=== PATIENT | male | born 1940 | race Caucasian/White ===

== ENCOUNTER 2017-12-07 10:30 | Emergency (ER) | payer OTHER, MEDICARE ==
[~2017-12-07] VITALS: Ht 157.5 cm; Wt 83.9 kg
--- NOTE | 2017-12-07 11:50 | ED GENERAL ADULT ---
History of Present Illness General Chief Complaint: Fall Stated Complaint: FALL LFT RIB PAIN Source: patient Exam Limitations: no limitations Vital Signs & Intake/Output Vital Signs & Intake/Output Vital Signs Date Time Temp Pulse Resp B/P B/P Pulse O2 O2 Flow FiO2 Mean Ox Delivery Rate 12/07 1424 98.0 68 18 162/78 99 Room Air 12/07 1037 98.0 65 16 149/66 97 Room Air Allergies Coded Allergies: Iodinated Contrast- Oral and IV Dye (Intermediate, HIVES 12/07/17) Reconcile Medications Ascorbic Acid (C-1000) 1,000 MG TABLET 1 TAB PO DAILY VITAMIN SUPPORT ( Reported) Aspirin (Ecotrin*) 81 MG TABLET.DR 1 TAB PO DAILY HEART HEALTH (Reported) Atorvastatin Calcium 20 MG TABLET 1 TAB PO DAILY CHOLESTEROL (Reported) Carvedilol 12.5 MG TABLET 1 TAB PO BID HEART (Reported) Cilostazol 50 MG TABLET 1 TAB PO BID UNKNOWN (Reported) Ranolazine (Ranexa) 500 MG TAB.ER.12H 1 TAB PO BID HEART (Reported) Valsartan 320 MG TABLET 1 TAB PO DAILY HEART (Reported) Triage Note: 77M MISSED A STEP AND FELL DOWN 2 STAIRS YESTERDAY AT 5:50PM. +HEADSTRIKE, -LOC. DENIES N/V/CHANGES IN VISION OR HEADACHE. DENIES C-SPINE TENDERNESS. REPORTS PAIN TO LEFT RIBCAGE WORSE WITH MOVEMENT AND LAYING DOWN. DENIES SOB, PAIN WORSE WITH VERY DEEP BREATH. -THINNERS. MEDICATED WITH TYLENOL IN TRIAGE Triage Nurses Notes Reviewed? yes Onset: Abrupt Duration: day(s): Timing: recent history HPI: 12/07/17 77-year-old man status post mechanical slip and fall yesterday. He did hit his frontal region of his head and he has left upper rib pain. He denies shortness of breath, abdominal pain or other complaints. He denies any chest pain. He says he has isolated pain to the left upper ribs. He denies headache or neck pain. He says he missed the last 2 steps and fell. He has no abdominal pain. No left shoulder pain. He complains of left upper, left rib pain, worse with movement and twisting. Past History Travel History Traveled to [place] past 21 day No Medical History Any Pertinent Medical History? see below for history Neurological: NONE EENT: NONE Cardiovascular: hypertension, CABG Respiratory: NONE Gastrointestinal: NONE Hepatic: NONE Renal: NONE Musculoskeletal: NONE Psychiatric: NONE Endocrine: NONE Blood Disorders: NONE Cancer(s): NONE Surgical History Surgical History: CABG Psychosocial History What is your primary language Irish Tobacco Use: Never used Family History Hx Contributory? No Review of Systems Review of Systems Constitutional: Denies: fever. EENTM: Denies: visual changes. Respiratory: Denies: short of breath. Cardiovascular: Reports: see HPI. Denies: chest pain. GI: Denies: abdominal pain, nausea. Genitourinary: Reports: no symptoms. Musculoskeletal: Reports: see HPI. Skin: Denies: rash. Neurological/Psychological: Reports: no symptoms. Hematologic/Endocrine: Reports: no symptoms. Immunologic/Allergic: Reports: no symptoms. Physical Exam Physical Exam General Appearance: well developed/nourished, alert, awake, anxious, mild distress Head: atraumatic, normal appearance Eyes: Bilateral: normal appearance, PERRL, EOMI. Ears, Nose, Throat: normal pharynx, normal ENT inspection Neck: normal inspection, supple, full range of motion Respiratory: normal breath sounds, no respiratory distress, left upper lateral rib tenderness Cardiovascular: regular rate/rhythm Peripheral Pulses: 4+ radial (R), 4+ radial (L) Gastrointestinal: soft, non-tender Back: normal range of motion Extremities: normal range of motion Neurologic/Psych: awake, alert, oriented x 3 Skin: intact, normal color, warm/dry Core Measures ACS in differential dx? No CVA/TIA Diagnosis: No Sepsis Present: No Sepsis Focused Exam Completed? No Progress Differential Diagnoses I considered the following diagnoses in my evaluation of the patient: [Rib fracture, pneumothorax, splenic injury, intracranial bleed, cervical spine fracture other occult trauma all considered] Plan of Care: Orders Procedure Date/time Status CT HEAD WO IV CONTRAST 12/07 1212 Active XRY-RIBS UNILATERAL-LEFT 12/07 1036 Active Initial ED EKG: none Departure Departure Disposition: HOME OR SELF CARE Condition: Stable Clinical Impression Primary Impression: Rib injury Secondary Impressions: Head injury Referrals: Real YEAGER,Delvis Del Valle (PCP/Family) Departure Forms: Customer Survey General Discharge Information Comments CT scan of the head is negative for acute injury X-rays are negative for evidence of rib fracture, pneumothorax, hemothorax I considered splenic injury. He has no tenderness to deep palpation of the left upper quadrant. No left shoulder pain. No tachycardia. No complaints of abdominal pain. Vital signs are stable and the injury is 24 hours ago. We discussed that he likely has an occult rib fracture. Tylenol and ibuprofen will be taken for pain. He will return immediately if abdominal pain, shortness of breath or if the pain is worse. He will follow-up with his doctor this week. Critical Care Note Critical Care Note Critical Care Time: non-applicable
[2017-12-07] MEDS ORDERED: CARVEDILOL12.5 M1 PO (12:37)
[2017-12-07] MEDS ORDERED: VALSARTAN320 M1 PO (12:38)
[2017-12-07] MEDS ORDERED: ASPIRIN EC81 M1 PO (12:38)
[2017-12-07] MEDS ORDERED: RANEXA500 M1 PO (12:39)
[2017-12-07] MEDS ORDERED: CILOSTAZOL50 M1 PO (12:39)
[2017-12-07] MEDS ORDERED: ATORVASTATIN CA20 M1 PO (12:39)
[2017-12-07] MEDS ORDERED: C-10001000 MG PO (12:39)
--- NOTE | 2017-12-07 13:50 | CT SCAN REPORT ---
EXAMINATION: CT HEAD WITHOUT CONTRAST CLINICAL INFORMATION: Fall, head trauma. COMPARISON: None. TECHNIQUE: Contiguous axial imaging was performed from the skull base to vertex without intravenous administration of contrast. DLP: 62.71 mGy-cm FINDINGS: There is no evidence of acute intracranial hemorrhage or territorial infarction. No abnormal mass effect or midline shift is seen. Pelaez to white matter differentiation is well preserved. No extra-axial fluid collections are identified. There is mild commensurate prominence of the ventricles and sulci consistent with diffuse volume loss. There are areas of low-attenuation in the periventricular and subcortical white matter consistent with chronic microvascular ischemic changes. There is a linear area of encephalomalacia in the anterior right basal ganglia consistent with a chronic infarct. There is mild associated ex vacuo dilatation of the anterior horn of the right lateral ventricle. There is an equivocal small focus of low attenuation versus partial voluming in the right occipital lobe posteriorly, which may be consistent with a small chronic infarct. There are no acute osseous findings. There are degenerative changes of the right temporomandibular joint. There are no large scalp contusions or hematomas. There are extensive atheromatous calcifications of the bilateral cavernous internal carotid arteries. The mastoid air cells and visualized portions of the paranasal sinuses are well-aerated. The nasal septum is deviated to the right and there is a right-sided bony nasal septal spur. IMPRESSION: 1. There are no acute bleeds or territorial infarcts. There are no acute osseous or soft tissue findings. 2. There is diffuse volume loss and there are chronic microvascular ischemic changes. 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
--- NOTE | 2017-12-07 14:20 | RADIOLOGY REPORT ---
EXAMINATION: XR RIBS, LEFT CLINICAL INFORMATION: Fall yesterday with left rib pain. COMPARISON: None. TECHNIQUE: PA chest and 4 views left ribs. FINDINGS: Both lungs are well expanded without any acute pneumonic consolidation. The heart size and pulmonary vascularity are normal. There are median sternotomy sutures and mediastinal lidia from previous CABG. No gross bony abnormality seen. Multiple views of left ribs reveal no visible acute fracture or bony abnormality. The soft tissues are unremarkable. IMPRESSION: No acute cardiopulmonary process seen. No visible left rib fracture noted. There is evidence of previous CABG.
[2017-12-07 14:24] VITALS: BP 162/78
== END 2017-12-07 14:51 ==
LOC: ERH 10:30
DX: S29.9XXA Unspecified injury of thorax, initial encounter (principal); S09.90XA Unspecified injury of head, initial encounter; W01.0XXA Fall on same level from slipping, tripping and stumbling without subsequent striking against object, initial encounter
CPT/HCPCS: 71100-LT